=== PATIENT | female | born 1975 | race Caucasian/White ===

== ENCOUNTER 2025-02-21 12:00 | Outpatient (REF) | payer BC, SELFPAY ==
[2025-02-21 13:18] LABS: MANUAL DIFF FLAG NO
[2025-02-21 13:39] LABS: Basophils Percent Auto 0.3 % (0-2); Eosinophils Absolute Auto 0.1 X10*3/uL (0.0-0.4); Eosinophils Percent Auto 1.4 % (0-4); Hematocrit 39.6 % (37.0-47.0); Hemoglobin 13.7 g/dl (12.0-16.0); Imm Gran Abs Auto 0.02 X10*3/uL (0.00-0.03); Imm Gran Pct Auto 0.3 % (0.0-0.4); Lymphocytes Absolute Auto 2.9 X10*3/uL (1.2-4.9); Lymphocytes Percent Auto 39.5 % (20-40); Mean Corpuscular HGB Conc 34.6 g/dl (31.0-35.0); Mean Corpuscular Hemoglobin 32.8 pg (27.0-33.0); Mean Corpuscular Volume 94.7 fL (80.0-98.0); Mean Platelet Volume 10.2 fL (9.4-12.3); Monocytes Absolute Auto 0.6 X10*3/uL (0.1-1.2); Monocytes Percent Auto 7.6 % (2-11); Neutrophils Absolute Auto 3.8 x10*3/uL (2.0-8.3); Neutrophils Percent Auto 50.9 % (45-73); Platelet Count 271 X10*3/uL (160-400); Red Blood Count 4.18 X10*6/uL (4.20-5.50); Red Cell Distribution Width 12.2 % (11.0-16.0); White Blood Count 7.4 X10*3/uL (4.8-10.8)
--- OUTSIDE RECORDS SUMMARY | 2025-02-21 14:57 | XMS_ITS ---
Author Organization [facility] Address [address] [place] [address] Care Team Providers Care Golf Club Manager Name Role Phone Anupama Bolden MD Primary Care Provider Sourav Andino Jr Allergies Allergen (clinical drug ingredient) Drug/Non Drug Allergy documented on EMR Reaction Allergy Type Onset Date Status Gluten gluton (uncoded) Unknown Allergy Act kwaku REASON FOR VISIT Patient presents to for CELIAC Social History Tobacco Use: Social History Observation Description Date Details (start date - stop date) Never Smoker NA - NA Tobacco Use/Smoking Question Answer Notes Patient is a nonsmoker Alcohol Screen Question Answer Notes Did you have a drink contain ing alcohol in the past year? Yes How often did you have a dri nk containing alcohol in the past year? Never (0 point) How many drinks did you have on a typical day when you were drinking in the past year? 1 or 2 drinks (0 point) How often did you have 6 or more drinks on one occasion in the past year? Never (0 point) Points 0 Interpretation Negative Vital Signs Blood pressure systolic 111 mm Hg 02/15/20 25 Blood pressure diastolic 11 mm Hg 025 Height 5 ft 6 in in 02/14/2025 Weight 174 lbs 02/14/2025 BMI 28.08 kg/m2 02/14/2025 Encounters Encounter Location Date Provider Diagnosis [facility] [address] [place] [address] 02/14/2025 Sourav Matthews Jr Generalized abdominal pain R10.84 ; Rectal urgency R15.2 and Celiac disease K90.0 Assessments Encounter Date Diagnosis (ICD Code) Assessment Notes Treatment Notes Treatment Clinical Notes Section Notes 02/14/2025 Generalized abdominal pain (ICD-10 - R10.84) 02/14/2025 Rectal urgency (ICD-10 - R15.2) 02/14/2025 Celiac disease (ICD-10 - K90.0) Plan Of Treatment Pending Test Test Name Order Date LIVER PROFILE 02/14/2025 LIPASE 02/14/2025 CBC w/o DIFF 02/14/2025 CELIAC DISEASE ANTIBODY PANEL 02/14/2025 Future Test Test Name Order Date UPPER GI ENDOSCOPY 02/14/2025 COLONOSCOPY 02/14/2025 Next Appt Details Provider Name:Sourav flores , 03/15/2025 08:20:00 AM, [address] [place] [address] , [place], [place], [phone], Progress Notes * GUMARO ATKINSONDOB:1975 ( 49 yo F)Acc No.[id number]:02/14/2025 Progress Notes Patient:?GUMARO ATKINSON Provider:?Sourav Matthews MD :1975???Age:49 Y???Sex:Female D ate:02/14/2025 Address:[address] [place], [place] [id number] Pcp:Anupaam Bolden MD Subjective: * Chief Complaints: * ???1. Patient presents to for CELIAC. 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 * Surgical History:?Denies Pas t Surgical History. * Family History:?Father: dece ased, lung cancer, diagnosed with HTN (hypertension).?Mother: alive, diverticulosis/ hx of digestive issues, diagnosed with Colon polyps, HTN (hypertension).?Siblings: brother , diagnosed with HTN (hypertension).? no known hx of colon ca , liver ds. * Social History:?Tobacco Use:?Tobacco Use/Smoking?Patient is a?nonsmoker.?Drugs/Alcohol:?Alcohol Screen?Did you have a drink containing alcohol in the past year??Yes,?How often did you have a drink containing alcohol in the past year??Never (0 point),?How many drinks did you have on a typical day when you were drinking in the past year??1 or 2 drinks (0 point),?How often did you have 6 or more drinks on one occasion in the past year??Never (0 point),?Points?0,?Interpretation?Negative.?Miscellaneous:?Marital status: . 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 * Medications:?None * Allergies:?Gluton. Objective: * Vitals:?Wt:174lbs, Ht: 5 ft 6 in, BMI:28.08Index, BP:111/11mm Hg, Wt-k.93. Assessment: * Assessment: 1.?Generalized abdominal obdulio n - R10.84 (Primary)???2.?Rectal urgency - R15.2???3.?Celiac disease - K90.0??? Plan: * Treatment: ?Procedure: COLONOSCOPY (Ordered for 02/14/2025)* sched for 03/15/25 at 8:20 amm acmiralax 2.?Rectal urgency?LAB: LIVER PROFILE ?LAB: LIPASE ?LAB: CBC w/o DIFF ?LAB: CELIAC DISEASE ANTIBODY PANEL ?Procedure: UPPER GI ENDOSCOPY (Ordered for 02/14/2025)* sched for 03/15/25 at 8:20 amm ac ?Procedure: COLONOSCOPY (Ordered for 02/14/2025)* sched for 03/15/25 at 8:20 amm acmiralax 3.?Celiac disease?LAB: LIVER PROFILE ?LAB: LIPASE ?LAB: CBC w/o DIFF ?LAB: CELIAC DISEASE ANTIBODY PANEL ?Procedure: UPPER GI ENDOSCOPY (Ordered for 02/14/2025)* sched for 03/15/25 at 8:20 amm ac ?Procedure: COLONOSCOPY (Ordered for 02/14/2025)* sched for 03/15/25 at 8:20 amm acmiralax * Preventive Medicine:? ??Counseling:?Care goal follow-up plan:?Above Normal BMI Follow-up?Giving encouragement to exercise,?BMI management provided?Yes.? * * The named appointment provid er may or may not be the originator of this progress note, and it is not deemed complete until electronically signed by the appointment provider. Sign off status: Pending * Provider:?Sourav Matthews MD Date:?0 02/14/2025 Generated for Danielle hart/Leon/Viviana on:?02/21/2025 02:57 PM EDT
--- OUTSIDE RECORDS SUMMARY | 2025-02-21 14:58 | XMS_ITS ---
Author Organization [facility] Address [address] [place] [phone] Care Team Providers Care Patron Attendant Name Role Phone Yuan BOSTON, Anupama Primary Care Provider Isaias Matthews Jr, Sourav Cotto REASON FOR VISIT Patient presents today for celiac Encounters Encounter Location Date Provider Diagnosis [facility] [address] [facility] [address] [place] [phone] 10/25/2024 Sourav Matthews Jr Plan Of Treatment Next Appt Details Provider Name:Sourav flores Jr, 03/15/2025 08:20:00 AM, [address] [place] [address] , [place], [place], [phone], Progress Notes * GUMARO ATKINSONDOB:1975 ( 49 yo F)Acc No.[id number]:10/25/2024 Progress Notes Patient:?GUMARO ATKINSON Provider:?Sourav Matthews MD :1975???Age:49 Y???Sex:Female D ate:10/25/2024 Address:[address] [place] [address] [facility] Pcp:Anupama Bolden MD Subjective: * Chief Complaints: * ???1. Patient presents today for celiac. * Medical History:? Objective: * Vitals:? Assessment: Plan: * Treatment: * * The named appointment provid er may or may not be the originator of this progress note, and it is not deemed complete until electronically signed by the appointment provider. Sign off status: Pending * Provider:?Sourav Matthews MD Date:?1 12/26/2023 Generated for Danielle hart/Leon/Viviana on:?02/21/2025 02:57 PM EDT
[2025-02-21 15:04] LABS: Alanine Aminotransferase 37 U/L (0-31); Albumin Level 4.4 g/dL (3.5-5.0); Alkaline Phosphatase 76 U/L (39-117); Aspartate Amino Transferase 25 U/L (5-31); Bilirubin Direct 0.1 mg/dL (0.0-0.5); Bilirubin Total 0.3 mg/dL (0.0-1.0); Lipase 19 U/L (8-78); Total Protein 7.2 g/dL (6.5-8.0)
[2025-02-26 22:04] LABS: Immunoglobulin A 188 mg/dL (47-310); Transglutaminase IgA 2.1 U/mL
== END 2025-02-21 12:01 | disposition home or self-care (01) ==
LOC: HO.10HDL 12:00
PROVIDERS: Visit Provider Internal Medicine Gastroenterology
DX: R10.84 Generalized abdominal pain (principal); R15.2 Fecal urgency; K90.0 Celiac disease
CPT/HCPCS: 36415; 80076; 82784; 83690; 85025; 86364

== ENCOUNTER 2025-03-15 06:49 | Day surgery (SDC) | payer BC, SELFPAY ==
--- OUTSIDE RECORDS SUMMARY | 2025-02-21 15:49 | XMS_ITS ---
Author Organization [facility] Address [address] [place] [phone] Care Team Providers Care Farmer And Grazier Name Role Phone Anupama Bolden MD Primary Care Provider Isaias Matthews Jr, Sourav Cotto [phone] REASON FOR VISIT R/S APPT TO FEBRUARY Encounters Encounter Location Date Provider Diagnosis [facility] [address] [facility] [address] [place] [phone] 10/23/2024 Sourav Matthews Jr Plan Of Treatment Next Appt Details Provider Name:Sourav flores Jr, 03/15/2025 08:20:00 AM, [address] [place] [address] , [place], [place], [phone], Progress Notes * GUMARO ATKINSONDOB:1975 ( 49 yo F)Acc No.[id number]:10/23/2024 Patient:?GUMARO ATKINSON :1975???Age:49 Y???Sex:Female Address:[address] [place] [address], [address] * true * Date:? Generated for Printi hailey/Leon/eTransmitting on:?02/21/2025 03:48 PM EDT
--- OUTSIDE RECORDS SUMMARY | 2025-02-21 15:49 | XMS_ITS | Patient Health Record ---
Author Organization [facility] Address [address] [place] [address] Care Team Providers Care Joinery Patternmaker Name Role Phone Anupama Bolden MD Primary Care Provider Sourav Andino Jr Unavailable Allergies Allergen (clinical drug ingredient) Drug/Non Drug Allergy documented on EMR Reaction Allergy Type Onset Date Status Gluten gluton (uncoded) Unknown Allergy Act kwaku Results Component Value Reference Range Notes Complete Blood Count Auto Di ff (Not yet reviewed by provider) Interpretation: Performing Lab:[facility], [address] [place] [id number] Notes/Report: White Blood Count 7.4 4.8-10.8 X10*3/uL Red Blood Count 4.18 4.20-5.50 X10*6/uL Hemoglobin 13.7 12.0-16.0 g/dl Hematocrit 39.6 37.0-47.0 % Mean Corpuscular Volume 94.7 80.0-98.0 fL Mean Corpuscular Hemoglobin 32.8 27.0-33.0 pg Mean Corpuscular HGB Conc 34.6 31.0-35.0 g/dl Red Cell Distribution Width 12.2 11.0-16.0 % Platelet Count 271 160-400 X10*3/uL Mean Platelet Volume 10.2 9.4-12.3 fL Neutrophils Percent Auto 50.9 45-73 % Imm Gran Pct Auto 0.3 0.0-0.4 % Lymphocytes Percent Auto 39.5 20-40 % Monocytes Percent Auto 7.6 2-11 % Eosinophils Percent Auto 1.4 0-4 % Basophils Percent Auto 0.3 0-2 % NRBC Pct Auto 0.0 0.0-0.2 /100WBC Neutrophils Absolute Auto 3.8 2.0-8.3 x10*3/u L Imm Gran Abs Auto 0.02 0.00-0.03 X10*3/uL Lymphocytes Absolute Auto 2.9 1.2-4.9 X10*3/u L Monocytes Absolute Auto 0.6 0.1-1.2 X10*3/uL Eosinophils Absolute Auto 0.1 0.0-0.4 X10*3/u L Basophils Absolute Auto 0.0 0.0-0.2 X10*3/uL NRBC Abs Auto 0.000 0.0-0.012 X10*3/uL Liver Panel (Not yet reviewe d by provider) Interpretation: Performing Lab:[address] [phone] Notes/Report: Bilirubin Total 0.3 0.0-1.0 mg/dL Bilirubin Direct 0.1 0.0-0.5 mg/dL Aspartate Amino Transferase 25 5-31 U/L Alanine Aminotransferase 37 0-31 U/L Total Protein 7.2 6.5-8.0 g/dL Albumin Level 4.4 3.5-5.0 g/dL Alkaline Phosphatase 76 39-117 U/L Lipase (Not yet reviewed by provider) Interpretation: Performing Lab:[address] [id number] Notes/Report: Lipase 19 8-78 U/L Reason For Referral No Information Social History Tobacco Use: Social History Observation [...] Never (0 point) Points 0 Interpretation Negative Problems Problem Type SNOMED Code ICD Code Onset Dates Problem Status W/U Status Risk Notes Problem 893490404 Colon cancer screening (Z12.11) Active confirmed Problem 479963329 Celiac disease (K90.0) Active confirmed Vital Signs Blood pressure diastolic 11 mm Hg 02/14/2025 Height 5 ft 6 in in 02/14/2025 Blood pressure systolic 111 mm Hg 02/14/2025 Weight 174 lbs 02/14/2025 BMI 28.08 kg/m2 02/14/2025 Encounters Encounter Location Date Provider Diagnosis [facility] [address] [place] [address] 02/14/2025 Sourav Matthews Jr Generalized abdominal pain R10.84 ; Rectal urgency R15.2 and Celiac disease K90.0 [facility] [address] [place] [address] 10/23/2024 Sourav Matthews Jr Assessments Encounter Date Diagnosis (ICD Code) Assessment Notes Treatment Notes Treatment Clinical Notes Section Notes 02/14/2025 Generalized abdominal pain (ICD-10 - R10.84) 02/14/2025 Rectal urgency (ICD-10 - R15.2) 02/14/2025 Celiac disease (ICD-10 - K90.0) Plan Of Treatment Pending Test Test Name Order Date LIVER PROFILE 02/14/2025 LIPASE 02/14/2025 CBC w/o DIFF 02/14/2025 CELIAC DISEASE ANTIBODY PANEL 02/14/2025 Complete Blood Count Auto Diff Liver Panel 02/21/2025 Lipase 02/21/2025 Future Test Test Name Order Date UPPER GI ENDOSCOPY 02/14/2025 COLONOSCOPY 02/14/2025 Next Appt Details Provider Name:Sourav flores Jr, 03/15/2025 08:20:00 AM, [address] [place] [address] , [place], [place], [phone], Insurance Providers Payer Name Payer Address Payer Phone Subscriber Number Group Number Insured Name Patient Relationship to Insured Coverage Start Date Coverage End Date [facility] [address] [place], [place] [id number] [phone] [id number] GUMARO ATKINSON Self - patient is the insured Medical (General) History Medical History History ICD Code osteopenia Colonoscopy 04/29, 20 mm tubulovillous ad enoma, three-year followup celiac disease , diagnosed 2007 with EGD and laboratory studies Hyperlipidemia Vitamin D deficiency Surgical History Surgery Date(Month/Year)
[2025-03-13 14:57] VITALS: BMI 27.8
--- NOTE | 2025-03-14 10:59 | P.CONAN_ITS ---
Documented by User: Penny Sapp NP 03/14/25 11:02 HPI - Anesthesia Eval Consult details Narrative: 49yo F for Upper Endoscopy and Colonoscopy PMFSH Past Medical History Medical History Collapsed lung Loud snoring Premature menopause Osteopenia Hypercholesteremia History of vitamin D deficiency Hx of dysplastic nevus Heartburn Endometriosis Chondromalacia patellae Celiac disease Surgical History Surgical History H/O skin graft H/O colonoscopy Social History Social History Are you a primary caretaker grounds to a significant other at home: No Do you presently have visiting nurse or other home services: No Patient Tobacco Use Status: Never used Tobacco Use of substances other than those prescribed or required for medical reasons: No Have you been hit, kicked, punched, or otherwise hurt by someone within the past year? If so, by whom?: No Are you DNR?: No Advance Directives: No Advance Directives Information Provided: No Advance Directives on File: No Patient : No : No Poor oral hygiene: No Meds Allergies Allergy/AdvReac Type Severity Reaction Status Date / Time gluten Allergy Intermediate Gastrointestinal Verified 03/15/25 07:13 Upset Home Medications ?Medication ?Instructions ?Recorded ?Confirmed ?Last Taken ?Type calcium 500 mg (as 1 tab PO BID 03/13/25 03/15/25 Unknown History carbonate)-vitamin D3 10 mcg (400 unit) tablet (Calcium 500 + D) fluticasone propionate 50 1 spray intranasal NEEDED PRN 03/13/25 03/15/25 Unknown History mcg/actuation nasal allergies spray,suspension Exam Height,Weight and Vital Signs: Height 5 ft 5.98 in Weight 78 kg Assessment and Plan Assessment Anesthesia Assessment: Chart Reviewed Documented by User: Lizzette Metz MD 03/15/25 08:58 PMFSH Past Medical History Medical History Collapsed lung Loud snoring Premature menopause Osteopenia Hypercholesteremia History of vitamin D deficiency Hx of dysplastic nevus Heartburn Endometriosis Chondromalacia patellae Celiac disease Family History Family history of problems with anesthesia: No Surgical History Surgical History H/O skin graft H/O colonoscopy History of Problems with Anesthesia: No Social History Social History Are you a primary caretaker grounds to a significant other at home: No Do you presently have visiting nurse or other home services: No Patient Tobacco Use Status: Never used Tobacco Use of substances other than those prescribed or required for medical reasons: No Have you been hit, kicked, punched, or otherwise hurt by someone within the past year? If so, by whom?: No Are you DNR?: No Advance Directives: No Advance Directives Information Provided: No Advance Directives on File: No Patient : No : No Poor oral hygiene: No Meds Allergies Allergy/AdvReac Type Severity Reaction Status Date / Time gluten Allergy Intermediate Gastrointestinal Verified 03/15/25 07:13 Upset Home Medications ?Medication ?Instructions ?Recorded ?Confirmed ?Last Taken ?Type calcium 500 mg (as 1 tab PO BID 03/13/25 03/15/25 Unknown History carbonate)-vitamin D3 10 mcg (400 unit) tablet (Calcium 500 + D) fluticasone propionate 50 1 spray intranasal NEEDED PRN 03/13/25 03/15/25 Unknown History mcg/actuation nasal allergies spray,suspension Exam Height,Weight and Vital Signs: Height 5 ft 5.98 in Weight 78 kg Vital Signs Temp Pulse Resp BP Pulse Ox O2 Del Method 03/15/25 07:19 97.3 F 73 16 115/71 97 Room Air Airway Mallampati Class: II TM Dist: >3cm Neck ROM: Full Loose/Missing/Broken Teeth: Yes (Missing molars. Denies broken or loose teeth) Heart: RRR Lungs: CTAB Assessment and Plan Final Anesthetic Review Family History of Problems with Anesthesia: No History of Problems with Anesthesia: No NPO: Yes ASA Class: II Final Preanesthetic Review: No Changes in Pt Med Stat, Meds/Allgs Chart Reviewed, Consent Obtained/Reviewed and Anes Risks/Benef Reviewed Patient Risk: Intermediate Procedure Risk: Low Assessment/Block/Sedation in SS: Assess/Block/Sedation-SS Anesthetic Plan Anesthetic Plan: TIVA Disposition: Standard PACU
[2025-03-15 07:19] VITALS: BP 115/71; PULSE 73; RESP 16; TEMP 36.3; O2SAT 97; BMI 28.3
[2025-03-15] MEDS: Lactated Ringers 1,000 ML 100 ML IVCONT (07:38)
--- NOTE | 2025-03-15 08:21 | MHC.SHP ---
Pre-Procedural Eval Section A - 24 Hr Update-Section A only Date of Service: 03/15/25 The patient is an INPATIENT: No Changes since office visit: No Cold of Flu in the past 2 weeks, No New Medical Problems, No Changes in Medication and No Patient answered all questions The patient has been examined within 24 hours of the surgical procedure. The History & Physical has been completed within 30 days and I have reviewed it.: Yes Section B - Complete if H&P > 30 days Chief Complaint: Generalized abdominal pain Allergies: Allergies Allergy/AdvReac Type Severity Reaction Status Date / Time gluten Allergy Intermediate Gastrointestinal Verified 03/15/25 07:13 Upset Plan I have reviewed the history and physical and performed a pertinent physical examination on my patient. No changes have occurred unless specified. Time Spent With Patient Time: Total time managing care of this patient today ____ minutes.
[2025-03-15 09:14] VITALS: BP 92/50; PULSE 63; RESP 18; TEMP 36.1; O2SAT 96
[2025-03-15 09:32] VITALS: BP 106/68; PULSE 71; RESP 18; TEMP 36.1; O2SAT 98
--- NOTE | 2025-03-15 09:37 | OP_ITS ---
DATE OF SERVICE: 03/15/2025 SURGEON: Sourav Matthews MD INDICATIONS: 1. Abdominal pain. 2. Rectal urgency. 3. Celiac disease. PREOPERATIVE DIAGNOSIS: POSTOPERATIVE DIAGNOSIS: PROCEDURE PERFORMED: Upper endoscopy with biopsy, colonoscopy to the terminal ileum with biopsy. ESTIMATED BLOOD LOSS: COMPLICATIONS: ANESTHESIA: Monitored anesthesia care. ASSISTANTS: SPECIMENS: DESCRIPTION OF PROCEDURE: A history and physical performed. The risks and benefits of the procedure were explained to the patient. Informed consent was obtained. The patient was placed in the left lateral decubitus position. A digital rectal exam was performed prior to the colonoscopy, was found to be normal. The Olympus pediatric videocolonoscope was introduced into the rectum for the colonoscopy. First the upper endoscopy was performed. The Olympus videogastroscope was introduced into the esophagus, stomach, and duodenum. Examination was performed. The scope was removed. The Olympus pediatric videocolonoscope was introduced into the rectum and advanced to the cecum. The cecum was identified by transillumination, palpation, and identification of the ileocecal valve. Examination was performed. The scope was removed. She tolerated both procedures well and was returned to recovery area in stable condition. FINDINGS: Upper endoscopy, esophagus: The esophagus was normal. There was an irregular EG junction without evidence of esophagitis. Biopsies were obtained from the EG junction. Stomach: The stomach showed no evidence of masses, ulcers, or polyps. Antral biopsies were obtained to evaluate for H pylori. Duodenum: The bulb and 2nd portion appeared relatively normal in terms of mucosa without scalloping or loss of the mucosal folds. Biopsies were obtained because of the patient's history of celiac disease. Colonoscopy: The terminal ileum was examined and appeared normal. The visualized colonic mucosa was normal. The quality of the prep was good. Biopsies were obtained from the sigmoid because of the patient's symptoms and to rule out microscopic and collagenous colitis. Two polyps were identified, both measured less than 5 mm, 1 was located in the cecum, 1 was located at 15 cm. These were removed with biopsy forceps. Retroflexed examination showed some small internal hemorrhoids. An ink tattoo brandon was identified in the mid sigmoid, likely related to her previous large adenoma. No residual polyp was identified. IMPRESSION: 1. Celiac disease. 2. Colon polyps. RECOMMENDATION: Follow up the biopsy results. MD ADAN Razo/TESSA / [id number] CORINE
--- NOTE | 2025-03-15 10:08 | P.BOP_ITS ---
Brief Operative Note Date of Service: 03/15/25 Pre-op diagnosis: [id number] abd pain Post-op diagnosis: same Procedure: egd colonoscopy Surgeon: Sourav Matthews MD Anesthesia: MAC Was an Steeple Jack used for this Procedure?: No Estimated blood loss (mL): 3 Pathology: other Condition: stable Disposition: ICU
--- NOTE | 2025-03-15 10:08 | PM.OP ---
Brief Operative Note Date of Service: 03/15/25 Pre-op diagnosis: [id number] abd pain Post-op diagnosis: same Procedure: egd colonoscopy Surgeon: Sourav Matthews MD Anesthesia: MAC Was an Trench Shovel Operator used for this Procedure?: No Estimated blood loss (mL): 3 Pathology: other Condition: stable Disposition: ICU
== END 2025-03-15 09:58 | disposition home or self-care (01) ==
PROVIDERS: PCP Internal Medicine; Visit Provider Internal Medicine Gastroenterology
PROC: (CPT 45380; principal; 2025-03-15 08:20)
DX: R10.84 Generalized abdominal pain (principal); Z86.0101 Personal history of adenomatous and serrated colon polyps; R15.2 Fecal urgency; D12.0 Benign neoplasm of cecum; K63.5 Polyp of colon; K90.0 Celiac disease; E78.5 Hyperlipidemia, unspecified; E55.9 Vitamin D deficiency, unspecified; M85.80 Other specified disorders of bone density and structure, unspecified site
CPT/HCPCS: 45380; 43239; 88305; 88313; 88341; 88342; J2003; J2704